=== PATIENT | female | born 1970 | race Hispanic/Latino ===

== ENCOUNTER → 2017-08-21 | Outpatient (CLI) | payer BC ==
[~2017-08-21] MED LIST: BUSPIRONE HCL7.5 MG PO; CYMBALTA60 MG PO; LABETALOL HCL100 MG PO; OMEPRAZOLE40 MG PO
--- NOTE | 2017-08-21 15:59 | Diagnostic Imaging Report ---
#[id number] - USBRECOMLT ULTRASOUND OF THE LEFT BREAST : 08/21/2017 Comparison is made to exam dated: 08/21/2017 mammogram - [facility]. Color flow and real-time ultrasound were performed on the entire left breast with scanning in all four quadrants, retroareolar region and the left axilla. -At 2 o'clock 2 cm from the nipple is a cluster of benign tiny cysts with a composite measurement of 7 x 5 x 7 mm. -At 2 o'clcok 1 cm from the nipple is a benign cyst measuring 4 x 3 x 4 mm -At 11 o'clock 5 cm from then nipple is a benign appearing cluster of cyst with a composite measurement of 5 x 3 x 3 mm -A prominent benign appearing lymph node is noted in the left axilla IMPRESSION: BENIGN There is no sonographic evidence of malignancy. A 1 year screening mammogram is recommended. Geovany Jimenez Jr., D.O. cw/:08/21/2017 14:59:37 Interior Surface Insulation Worker: REYNA JAMES, [facility] letter sent: Normal Exam Ultrasound BI-RADS: 2 Benign
--- NOTE | 2017-08-21 15:59 | Diagnostic Imaging Report ---
#[id number] - USBRECOMRT ULTRASOUND OF THE RIGHT BREAST : 08/21/2017 Comparison is made to exam dated: 08/21/2017 mammogram - [facility]. Color flow and real-time ultrasound were performed on the entire right breast with scanning in all four quadrants, retroareolar region and the right axilla. There are no cystic or solid masses identified. There is a prominent benign appearing axillary lymph node present. IMPRESSION: BENIGN There is no sonographic evidence of malignancy. A 1 year screening mammogram is recommended. Geovany Jimenez Jr., D.O. cw/:08/21/2017 14:51:01 Docent Coordinator: REYNA JAMES, [facility] letter sent: Normal Exam Ultrasound BI-RADS: 2 Benign
--- NOTE | 2017-08-21 15:59 | Diagnostic Imaging Report ---
#[id number] - MGDXBIL #BILATERAL DIGITAL DIAGNOSTIC MAMMOGRAM WITH CAD: 08/21/2017 Comparison is made to exams dated: 06/18/2015 mammogram, 07/05/2013 mammogram and 06/14/2013 mammogram - [facility]. Current study contains 6 films. The tissue of both breasts is extremely dense, which lowers the sensitivity of mammography. Current study was also evaluated with a Computer Aided Detection (CAD) system. There is a benign calcification in the left breast. No significant masses, calcifications, or other findings are seen in either breast. There has been no significant interval change. IMPRESSION: BENIGN There is no mammographic evidence of malignancy. A 1 year screening mammogram is recommended. The patient will be notified by letter of the results. Geovany woodson/emerald:08/21/2017 14:25:30 Sales Support Advisor: Niesha GUTIÉRREZ(Pelon)(M), [facility] letter sent: Compared to Prior B9 Mammogram BI-RADS: 2 Benign
== END ==
LOC: MAMMO 12:06
PROVIDERS: ATTEND Obstetrics & Gynecology Obstetrics
DX: R92.2 Inconclusive mammogram (principal)
CPT/HCPCS: 77066

== ENCOUNTER → 2018-09-08 | Outpatient (CLI) | payer BC | LOC: MAMMO 11:29 | PROVIDERS: ATTEND Obstetrics & Gynecology Obstetrics | DX: R92.2 Inconclusive mammogram (principal) | CPT/HCPCS: 77066 ==

== ENCOUNTER → 2019-09-06 | Outpatient (CLI) | payer BC | LOC: MAMMO 09:07 | PROVIDERS: ATTEND Obstetrics & Gynecology | DX: Z12.31 Encounter for screening mammogram for malignant neoplasm of breast (principal) | CPT/HCPCS: 77067 ==

== ENCOUNTER → 2020-09-06 | Outpatient (CLI) | payer BC | LOC: MAMMO 08:24 | PROVIDERS: ATTEND Obstetrics & Gynecology | DX: Z12.31 Encounter for screening mammogram for malignant neoplasm of breast (principal) | CPT/HCPCS: 77067 ==

== ENCOUNTER → 2021-09-05 | Outpatient (CLI) | payer BC | LOC: MAMMO 09:49 | PROVIDERS: ATTEND Obstetrics & Gynecology | DX: Z12.31 Encounter for screening mammogram for malignant neoplasm of breast (principal) | CPT/HCPCS: 77067 ==

== ENCOUNTER → 2022-09-03 | Outpatient (CLI) | payer BC | LOC: MAMMO 09:53 | PROVIDERS: ATTEND Obstetrics & Gynecology | DX: Z12.31 Encounter for screening mammogram for malignant neoplasm of breast (principal) | CPT/HCPCS: 77067 ==

== ENCOUNTER → 2023-09-14 | Outpatient (REF) | payer BC | LOC: MAMMO 08:29 | PROVIDERS: ATTEND Obstetrics & Gynecology | DX: Z12.31 Encounter for screening mammogram for malignant neoplasm of breast (principal) | CPT/HCPCS: 77067 ==

== ENCOUNTER → 2024-09-12 | Outpatient (REF) | payer BC | LOC: MAMMO 08:56 | PROVIDERS: ATTEND Obstetrics & Gynecology | DX: Z12.31 Encounter for screening mammogram for malignant neoplasm of breast (principal) | CPT/HCPCS: 77067 ==